=== PATIENT | female | born 1965 | race Caucasian/White ===

== ENCOUNTER 2021-05-11 11:41 | Emergency (ER) | payer BC, OTHER ==
[2021-05-11] MEDS ORDERED: Sodium Chloride 0.9% 10 ML Syringe FLUSH PRN (11:53)
[2021-05-11] MEDS ORDERED: Albuterol/Ipratropium 3.0-0.5 MG/3 ML Neb Soln NEB ONE (12:02)
--- NOTE | 2021-05-11 12:08 | EDM.PDOC ---
ED HPI GENERAL MEDICAL PROBLEM - General Chief Complaint: Respiratory Problem Stated Complaint: COUGH SOB Time Seen by Provider: 05/11/21 11:44 Source of Information: Reports: Patient, Old Records, RN Notes Reviewed History Limitations: Reports: No Limitations - History of Present Illness INITIAL COMMENTS - FREE TEXT/NARRATIVE: Patient is a 56-year-old female who presents to the ER for evaluation of her cough and shortness of breath. Patient's primary care provider is Dorothy Miller. Patient has a history of asthma. States roughly 9 days ago, she began to start feeling quite ill but was difficult to breathe, and has a dry tight intermittent cough. She states when she does cough anything up it is thick and whitish in color. States that this typically happens to her in the fall and the spring when temperatures and seasons change. She was evaluated by Dr. Miller when she began to feel ill, and she was placed on oral steroids and a Z-Ras and states that it does not seem to really have helped. She is taking her albuterol inhaler roughly every 2-3 hours. Patient states she has had low- grade temperatures but no major fevers. She has not had the body aches, she has had some generalized fatigue but no nausea/vomiting/diarrhea. Patient's O2 sats are roughly 93% on room air. States that she has had her Moderna COVID vaccine, and also the influenza shot for this year. 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 - Related Data Allergies Allergy/AdvReac Type Severity Reaction Status Date / Time codeine AdvReac Vomiting Verified 05/11/21 13:03 morphine AdvReac Headache Verified 05/11/21 13:03 Home Meds: Home Meds Albuterol [Proventil Neb Soln] 2.5 mg NEB QIDRT PRN #1 box 05/11/21 [Rx] Past Medical History Respiratory History: Reports: Asthma - Past Surgical History HEENT Surgical History: Reports: Eye Surgery, Oral Surgery, Tonsillectomy GI Surgical History: Reports: Appendectomy Social & Family History - Tobacco Use Tobacco Use Status *Q: Never Tobacco User ED ROS GENERAL - Review of Systems Review Of Systems: Comprehensive ROS is negative, except as noted in HPI. ED EXAM, GENERAL - Physical Exam Exam: See Below Exam Limited By: No Limitations General Appearance: Alert, WD/WN, No Apparent Distress Respiratory/Chest: No Respiratory Distress, Lungs Clear, No Accessory Muscle Use, Chest Non-Tender, Decreased Breath Sounds (bilaterally) Cardiovascular: Normal Peripheral Pulses, Regular Rate, Rhythm, No Edema Neurological: Alert, Oriented, Normal Cognition, No Motor/Sensory Deficits Psychiatric: Normal Affect, Normal Mood Skin Exam: Warm, Dry, Intact, Normal Color, No Rash Course - Vital Signs Last Recorded V/S: Last Vital Signs Temp 98.3 F 05/11/21 11:53 Pulse 102 H 05/11/21 11:53 Resp 20 05/11/21 11:53 BP 142/71 H 05/11/21 11:53 Pulse Ox 91 L 05/11/21 12:02 - Orders/Labs/Meds Orders: Active Orders 24 hr Category Date Time Status Peripheral IV Care [RC] . DIRECTED Care 05/11/21 11:53 Ordered RT Aerosol Therapy [RC] ASDIRECTED Care 05/11/21 12:02 Ordered Vital Signs [RC] Q15M Care 05/11/21 13:02 Ordered EPINEPHrine [Adrenalin] Med 05/11/21 13:02 Ordered 0.3 mg IM ASDIRECTED PRN Famotidine [Pepcid] Med 05/11/21 13:02 Ordered 20 mg IVPUSH ASDIRECTED PRN Sodium Chloride 0.9% [Saline Flush] Med 05/11/21 11:53 Ordered 10 ml FLUSH ASDIRECTED PRN Sodium Chloride 0.9% [Saline Flush] Med 05/11/21 13:15 Ordered 30 ml FLUSH ASDIRECTED diphenhydrAMINE [Benadryl] Med 05/11/21 13:02 Ordered 50 mg IVPUSH ASDIRECTED PRN methylPREDNISolone Sod Succ [Solu-MEDROL] Med 05/11/21 13:02 Ordered 125 mg IVPUSH ASDIRECTED PRN Peripheral IV Insertion Adult [OM.PC] Routine Oth 05/11/21 11:53 Ordered Medication Orders Diphenhydramine HCl (Diphenhydramine 50 Mg/Ml Sdv) 50 mg IVPUSH ASDIRECTED PRN PRN Reason: hypersensitivity reaction Epinephrine HCl (Epinephrine 1 Mg/Ml Sdv) 0.3 mg IM ASDIRECTED PRN PRN Reason: hypersensitivity reaction Famotidine (Famotidine 20 Mg/2 Ml Sdv) 20 mg IVPUSH ASDIRECTED PRN PRN Reason: hypersensitivity reaction Methylprednisolone Sodium Succinate (Methylprednisolone Sodium Succinate 125 Mg/2 Ml Sdv) 125 mg IVPUSH ASDIRECTED PRN PRN Reason: hypersensitivity reaction Sodium Chloride (Sodium Chloride 0.9% 10 Ml Syringe) 10 ml FLUSH ASDIRECTED PRN PRN Reason: Keep Vein Open Last Admin: 05/11/21 12:20 Dose: 10 ml Documented by: YONI Sodium Chloride (Sodium Chloride 0.9% 10 Ml Syringe) 30 ml FLUSH ASDIRECTED BONNY Labs: Laboratory Tests 05/11/21 05/11/21 05/11/21 Range/Units 11:50 12:15 12:15 WBC 5.68 (3.98-10.04) K/mm3 RBC 4.74 (3.98-5.22) M/mm3 Hgb 13.2 (11.2-15.7) gm/dl Hct 42.7 (34.1-44.9) % MCV 90.1 (79.4-94.8) fl MCH 27.8 (25.6-32.2) pg MCHC 30.9 L (32.2-35.5) g/dl RDW Std Deviation 40.6 (36.4-46.3) fL Plt Count 260 (182-369) K/mm3 MPV 8.7 L (9.4-12.3) fl Neut % (Auto) 84.4 H (34.0-71.1) % Lymph % (Auto) 9.7 L (19.3-51.7) % Sunflower % (Auto) 5.5 (4.7-12.5) % Eos % (Auto) 0.2 L (0.7-5.8) Baso % (Auto) 0.0 L (0.1-1.2) % Neut # (Auto) 4.80 (1.56-6.13) K/mm3 Lymph # (Auto) 0.55 L (1.18-3.74) K/mm3 Sunflower # (Auto) 0.31 (0.24-0.36) K/mm3 Eos # (Auto) 0.01 L (0.04-0.36) K/mm3 Baso # (Auto) 0.00 L (0.01-0.08) K/mm3 Sodium (136-145) mEq/L Potassium (3.5-5.1) mEq/L Chloride (98-107) mEq/L Carbon Dioxide (21-32) mEq/L Anion Gap (5-15) BUN (7-18) mg/dL Creatinine (0.55-1.02) mg/dL Est Cr Clr Drug Dosing mL/min Estimated GFR (MDRD) (>60) mL/min BUN/Creatinine Ratio (14-18) Glucose (70-99) mg/dL Calcium (8.5-10.1) mg/dL Magnesium (1.8-2.4) mg/dL Total Bilirubin (0.2-1.0) mg/dL AST (15-37) U/L ALT (14-59) U/L Alkaline Phosphatase (46-116) U/L C-Reactive Protein 8.0 H* (<1.0) mg/dL Total Protein (6.4-8.2) g/dl Albumin (3.4-5.0) g/dl Globulin gm/dL Albumin/Globulin Ratio (1-2) SARS-CoV-2 RNA ([facility]) Positive H (NEGATIVE) 05/11/21 Range/Units 12:15 WBC (3.98-10.04) K/mm3 RBC (3.98-5.22) M/mm3 Hgb (11.2-15.7) gm/dl Hct (34.1-44.9) % MCV (79.4-94.8) fl MCH (25.6-32.2) pg MCHC (32.2-35.5) g/dl RDW Std Deviation (36.4-46.3) fL Plt Count (182-369) K/mm3 MPV (9.4-12.3) fl Neut % (Auto) (34.0-71.1) % Lymph % (Auto) (19.3-51.7) % Sunflower % (Auto) (4.7-12.5) % Eos % (Auto) (0.7-5.8) Baso % (Auto) (0.1-1.2) % Neut # (Auto) (1.56-6.13) K/mm3 Lymph # (Auto) (1.18-3.74) K/mm3 Sunflower # (Auto) (0.24-0.36) K/mm3 Eos # (Auto) (0.04-0.36) K/mm3 Baso # (Auto) (0.01-0.08) K/mm3 Sodium 136 (136-145) mEq/L Potassium 3.9 (3.5-5.1) mEq/L Chloride 100 (98-107) mEq/L Carbon Dioxide 26 (21-32) mEq/L Anion Gap 13.9 (5-15) BUN 8 (7-18) mg/dL Creatinine 0.8 (0.55-1.02) mg/dL Est Cr Clr Drug Dosing 75.45 mL/min Estimated GFR (MDRD) > 60 (>60) mL/min BUN/Creatinine Ratio 10.0 L (14-18) Glucose 100 H (70-99) mg/dL Calcium 8.7 (8.5-10.1) mg/dL Magnesium 2.0 (1.8-2.4) mg/dL Total Bilirubin 0.4 (0.2-1.0) mg/dL AST 15 (15-37) U/L ALT 21 (14-59) U/L Alkaline Phosphatase 74 (46-116) U/L C-Reactive Protein (<1.0) mg/dL Total Protein 7.6 (6.4-8.2) g/dl Albumin 3.4 (3.4-5.0) g/dl Globulin 4.2 gm/dL Albumin/Globulin Ratio 0.8 L (1-2) SARS-CoV-2 RNA ([facility]) (NEGATIVE) Meds: Medications Generic Name Dose Route Start Last Admin Trade Name Freq PRN Reason Stop Dose Admin Diphenhydramine HCl 50 mg 05/11/21 13:02 Diphenhydramine 50 Mg/Ml Sdv IVPUSH ASDIRECTED PRN hypersensitivity reaction Epinephrine HCl 0.3 mg 05/11/21 13:02 Epinephrine 1 Mg/Ml Sdv IM ASDIRECTED PRN hypersensitivity reaction Famotidine 20 mg 05/11/21 13:02 Famotidine 20 Mg/2 Ml Sdv IVPUSH ASDIRECTED PRN hypersensitivity reaction Methylprednisolone Sodium Succinate 125 mg 05/11/21 13:02 Methylprednisolone Sodium Succinate 125 Mg/2 Ml Sdv IVPUSH ASDIRECTED PRN hypersensitivity reaction Sodium Chloride 10 ml 05/11/21 11:53 05/11/21 12:20 Sodium Chloride 0.9% 10 Ml Syringe FLUSH 10 ml ASDIRECTED PRN Administration Keep Vein Open Sodium Chloride 30 ml 05/11/21 13:15 Sodium Chloride 0.9% 10 Ml Syringe FLUSH ASDIRECTED BONNY Discontinued Medications Generic Name Dose Route Start Last Admin Trade Name Freq PRN Reason Stop Dose Admin Acetaminophen 975 mg 05/11/21 14:26 05/11/21 14:28 Acetaminophen 325 Mg Tab PO 05/11/21 14:27 975 mg NOW ONE Administration Albuterol/Ipratropium 3 ml 05/11/21 12:02 05/11/21 12:09 Albuterol/Ipratropium 3.0-0.5 Mg/3 Ml Neb Soln NEB 05/11/21 12:03 3 ml ONETIME ONE Administration Bamlanivimab 700 mg/ 160 mls @ 310 mls/hr 05/11/21 13:30 05/11/21 13:29 Etesevimab 1,400 mg/ Sodium IV 05/11/21 14:00 310 mls/hr Chloride ONETIME ONE Administration - Re-Assessments/Exams Free Text/Narrative Re-Assessment/Exam: 05/11/21 12:07 Patient presents to the ER for the evaluation of her cough and shortness of breath. A COVID-19/influenza swab was taken at time of triage. We will go ahead get a chest x-ray, and some basic labs for initial evaluation and have an IV to be placed at this time. We will try a DuoNeb with the patient see if this helps relieve some of her symptoms. 05/11/21 13:03 Patient's laboratory evaluation has resulted, CBC and CMP are essentially unremarkable, CRP is elevated at 8.0, the patient's COVID-19 swab did result positive. Patient is negative for influenza. I spoke with the patient to provide information about monoclonal antibody treatment. I offered them the "Patient and caregiver EUA monoclonal antibody fact sheet" to read and review. I stated that the drug has been approved by an emergency use authorization (EUA) process and has not been fully FDA reviewed or approved. The patient meets the EUA requirements. I discussed there are other potential treatment options that are currently not FDA approved to treat COVID-19. I did offer an opportunity to ask questions and all questions were answered. The patient voiced understanding and agreed to proceed with the treatment. 05/11/21 13:14 Patient's chest x-ray was reviewed by myself, and Dr. Szymanski, there is some concern for viral type pneumonia, consistent with a COVID-19 infection. Departure - Departure Time of Disposition: 14:52 Disposition: Home, Self-Care 01 Condition: Good Clinical Impression: COVID-19 Asthma Qualifiers: Asthma severity: unspecified severity Asthma persistence: unspecified Asthma complication type: unspecified Qualified Code(s): J45.909 - Unspecified asthma, uncomplicated - Discharge Information *PRESCRIPTION DRUG MONITORING PROGRAM REVIEWED*: No *COPY OF PRESCRIPTION DRUG MONITORING REPORT IN PATIENT ZAKI: No Prescriptions: Albuterol [Proventil Neb Soln] 2.5 mg NEB QIDRT PRN #1 box PRN Reason: Shortness Of Breath Instructions: COVID-19 Frequently Asked Questions, 10 Things You Can Do to Manage Your COVID-19 Symptoms at Home - [facility] (02/05/2021) Forms: ED Department Discharge Additional Instructions: You were seen in the ER today for ongoing and/or worsening respiratory symptoms. Your chest x-ray showed minimal signs of a viral pneumonia typical for COVID-19 at this time. Your oxygen levels were great at 94-96% on room air. You were given IV monoclonal antibody therapy at today's visit, this medication is thought to work by making you a little less sick, and helps to decrease the length of time that you are sick. Please try to increase your oral fluid intake, and eat multiple small meals throughout the day, to keep yourself healthy. You need to keep yourself nourished in order to fight off this disease. You can try a liquid diet like gatorade/powerade as well to get your electrolytes. You may take 500 mg Tylenol every hours 6 hours for pain/fever relief. Do not exceed 4000 mg Tylenol in a 24-hour time span. However, running a fever is your body's natural response to illness, and it allows the body to develop antibodies to disease, we are recommending trying to limit the use of Tylenol as much as possible to allow your body's natural immune response. 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 They are located at [address] [facility] in [facility]. Telephone number is [phone], please call them when you are outside and let them know you are outside so they can bring the compressor/supplies out to you. You were given a prescription for albuterol nebulizers you may use 1 Nebules 4 times a day, or every 4 hours as needed for ongoing shortness of breath. This medication was electronically sent to [facility] in the [facility]. Recommend you obtain a pulse oximeter and monitor your oxygen levels at home, you should place the monitor on your finger, and sit in a calm, quiet position for a few minutes and then record the number that is on the screen. If this consistently below 90% on room air without movement, this would be cause for concern to come back to the hospital for further management of your COVID-19 disease. Please follow all guidance set forth from [facility], regarding isolation purposes for your disease process. General isolation times are 10 days from when you started being symptomatic. I did talk with the clinic pharmacy, and they stated that your insurance would not refill your other inhalers until May 15. So you will likely have to wait until then to have them refilled. Sepsis Event Note (ED) - Evaluation Sepsis Screening Result: No Definite Risk - Focused Exam Vital Signs: Vital Signs Temp Pulse Resp BP Pulse Ox Pulse Ox 05/11/21 12:02 91 L 05/11/21 11:53 98.3 F 102 H 20 142/71 H 95 - My Orders Last 24 Hours: My Active Orders 05/11/21 11:53 Peripheral IV Care [RC] . DIRECTED Sodium Chloride 0.9% [Saline Flush] 10 ml FLUSH ASDIRECTED PRN Peripheral IV Insertion Adult [OM.PC] Routine 05/11/21 12:02 RT Aerosol Therapy [RC] ASDIRECTED 05/11/21 13:02 Vital Signs [RC] Q15M EPINEPHrine [Adrenalin] 0.3 mg IM ASDIRECTED PRN Famotidine [Pepcid] 20 mg IVPUSH ASDIRECTED PRN diphenhydrAMINE [Benadryl] 50 mg IVPUSH ASDIRECTED PRN methylPREDNISolone Sod Succ [Solu-MEDROL] 125 mg IVPUSH ASDIRECTED PRN 05/11/21 13:15 Sodium Chloride 0.9% [Saline Flush] 30 ml FLUSH ASDIRECTED - Assessment/Plan Last 24 Hours: My Active Orders 05/11/21 11:53 Peripheral IV Care [RC] . DIRECTED Sodium Chloride 0.9% [Saline Flush] 10 ml FLUSH ASDIRECTED PRN Peripheral IV Insertion Adult [OM.PC] Routine 05/11/21 12:02 RT Aerosol Therapy [RC] ASDIRECTED 05/11/21 13:02 Vital Signs [RC] Q15M EPINEPHrine [Adrenalin] 0.3 mg IM ASDIRECTED PRN Famotidine [Pepcid] 20 mg IVPUSH ASDIRECTED PRN diphenhydrAMINE [Benadryl] 50 mg IVPUSH ASDIRECTED PRN methylPREDNISolone Sod Succ [Solu-MEDROL] 125 mg IVPUSH ASDIRECTED PRN 05/11/21 13:15 Sodium Chloride 0.9% [Saline Flush] 30 ml FLUSH ASDIRECTED
[2021-05-11] MEDS ORDERED: methylPREDNISolone Sodium Succinate 125 MG/2 ML SDV IVPUSH PRN (13:02)
[2021-05-11] MEDS ORDERED: diphenhydrAMINE 50 MG/ML SDV IVPUSH PRN (13:02)
[2021-05-11] MEDS ORDERED: EPINEPHrine 1 MG/ML SDV IM PRN (13:02)
[2021-05-11] MEDS ORDERED: Famotidine 20 MG/2 ML SDV IVPUSH PRN (13:02)
[2021-05-11] MEDS ORDERED: Sodium Chloride 0.9% 10 ML Syringe FLUSH SCH (13:15)
[2021-05-11] MEDS ORDERED: Bamlanivimab 700 MG, ETESEVIMAB 1,400 MG in Sodium Chloride 0.9% 100 ML IV ONE (13:30)
[2021-05-11] MEDS ORDERED: Acetaminophen 325 MG Tab PO ONE (14:26)
--- NOTE | 2021-05-11 14:36 | CR ---
Chest: Frontal view of the chest was obtained. Comparison: No prior chest imaging is available. Patchy areas of increased density are seen on both sides of the chest. Heart size and mediastinum are normal. No acute osseous abnormality is appreciated. Impression: 1. Increased density within both sides of the chest most likely representing COVID pneumonia. Diagnostic code #3
== END 2021-05-11 15:20 | disposition home or self-care (01) ==
LOC: JD.ED 11:41
DX: U07.1 COVID-19 (principal); J45.909 Unspecified asthma, uncomplicated; Z88.5 Allergy status to narcotic agent
CPT/HCPCS: 36415; 71045; 80053; 83735; 85025; 86140; 87635; 87804; 94640; 99285; A9270; M0245; Q0245; J7620-GY; U0002